=== PATIENT | male | born 1965 ===

== ENCOUNTER 2016-06-16 08:18 | Outpatient (RCR) | payer OTHER | END 2016-06-24 11:49 | disposition home or self-care (01) | LOC: WSPT 08:18 | DX: M51.16 Intervertebral disc disorders with radiculopathy, lumbar region (principal) ==

== ENCOUNTER 2023-01-21 21:58 | Emergency (ER) | payer SELFPAY ==
[~2023-01-21] VITALS: Ht 180.3 cm; Wt 99.1 kg
[2023-01-21 22:02] VITALS: TEMP 97.5
[2023-01-22 01:18] VITALS: BP 136/90; PULSE 79
== END 2023-01-22 01:44 | disposition home or self-care (01) ==
LOC: COL.ER 21:58
DX: M54.12 Radiculopathy, cervical region (principal); Z28.310 Unvaccinated for COVID-19
CPT/HCPCS: J1790; J1885